=== PATIENT | female | born 1975 | race Caucasian/White ===

== ENCOUNTER → 2021-01-01 | Day surgery (SDC) | payer OTHER ==
[~2021-01-01] MED LIST: ROXICODONE5 M2 PO
--- NOTE | 2021-01-04 15:01 | OP ---
[facility] [address] [place] [address] OPERATIVE REPORT Name: MARIO FLOYD Room: [facility]#: [id number] Admission: 01/01/21 Attend Phys: Felisa Craven Discharge: Date of : 73 Report #: [id number] THIS REPORT FOR: cc: Herbert Bueno MD, Tuongvan T. MD ~ Casper Townsend DO DATE OF SERVICE: 01/01/2021 SURGEON: Dr. Casper Townsend. FACTORY MACHINE COMPUTER OPERATOR: None. PREOPERATIVE DIAGNOSIS: Cholecystitis, biliary colic. POSTOPERATIVE DIAGNOSIS: Cholecystitis, biliary colic. PROCEDURE PERFORMED: Laparoscopic cholecystectomy. INDICATION: The patient is a 45-year-old female who was met in consultation in the hospital after an episode of biliary colic. She was subsequently discharged home and followed up for laparoscopic cholecystectomy. We discussed the risks, benefits and alternatives to surgery. Risks of bleeding, infection, damage to nearby structures including the bowel and biliary tree were described. The patient voiced complete understanding and elected to proceed with surgery. DESCRIPTION OF PROCEDURE: The patient was taken to the operating theater and placed in the supine position. Bilateral SCDs were placed and preoperative antibiotics were given. General anesthesia was induced without complication. A timeout was performed and all were in agreement. We began with an infraumbilical curvilinear incision using 11 blade scalpel. Dissection was carried down to the midline fascia using S retractors and electrocautery. Once the midline fascia was appreciated, it was scored with electrocautery and elevated into the surgical field using Emiliana clamps. The abdomen was then entered bluntly using a hemostat. 0 Vicryl stay sutures were placed on either edge of the fascia and a Meagan trocar was introduced. The abdomen was insufflated to 15 mmHg. The patient was then placed in the head up, left side down position. The camera was introduced. There was no injury to intra-abdominal contents upon abdominal entry. A 5 mm trocar was placed in the subxiphoid position under direct visualization, two more 5 mm trocars were placed in the right upper quadrant under direct visualization. Using the healthcare administrative assistant port, the gallbladder fundus was grasped and elevated towards the anterior abdominal wall. There were some omental adhesions to the gallbladder. These were gently and bluntly swept down off of the gallbladder. Mirela's pouch was then taken [place] [address] OPERATIVE REPORT Name: MARIO FLOYD Room: [facility]#: [id number] Admission: 01/01/21 Attend Phys: Felisa Craven Discharge: Date of : 73 Report #: [id number] lateral peritoneum of the gallbladder was scored with electrocautery and carried towards the liver. The peritoneal incision was then carried over Mirela's pouch and Mirela's pouch was then taken inferolaterally and the peritoneum was incised along the medial aspect of the gallbladder. The peritoneum was then bluntly pushed down on the lateral and medial side exposing the cystic duct and cystic artery. The cystic duct and cystic artery were then skeletonized using a [place] dissector and hook electrocautery. All fibrofatty tissue was cleared from the hepatocystic triangle. At this point, we had a critical view of safety with two structures and the gallbladder and the cystic artery. The cystic artery was clipped twice proximally and once distally and transected with Endo Cedric. The cystic duct was too large to be clipped with a 5 mm clip perforator operator oil well, so the subxiphoid port was changed to a 12 mm port under direct visualization. A 10 mm clips were then used to clip the cystic duct 3 times proximally and once distally and then transected using EndoShears. Then, Mirela's pouch was taken towards the anterior abdominal wall and the gallbladder was dissected free from the gallbladder fossa using electrocautery. Once this had been completed, it was placed into an EndoCatch bag and placed aside. Small amount of irrigation was used in the right upper quadrant. The fluid ran clear and was suctioned dry. Hemostasis was obtained using electrocautery. The clips were visualized again and there was no bile or blood leakage. Next, the patient was placed in the neutral position. The 5 mm trocars were removed under direct visualization, a PMI closure device and 0 Vicryl was used to close the subxiphoid port site under direct visualization. Next, the Meagan trocar was removed and the EndoCatch bag and gallbladder removed from the midline incision. Abdomen was completely desufflated. The midline umbilical incision fascia was closed using 0 Vicryl in [id number] fashion. The subcutaneous tissue was closed using a 3-0 Vicryl in an interrupted inverted fashion. All skin incisions were closed using a 4-0 Monocryl in an interrupted inverted fashion. All skin wounds were dressed with Dermabond. This concluded the procedure and counts were correct x 2. COMPLICATIONS: None. FINDINGS: Omental adhesions to the gallbladder, cholelithiasis. ESTIMATED BLOOD LOSS: 10 mL. ANESTHESIA: General endotracheal anesthesia. DRAINS: None. SPECIMENS: [place] [address] OPERATIVE REPORT Name: MARIO FLOYD Room: [facility]#: [id number] Admission: 01/01/21 Attend Phys: Felisa Craven Discharge: Date of : 73 Report #: [id number] DISPOSITION: The patient was extubated successfully and taken to the PACU in stable condition. <ELECTRONICALLY SIGNED> By: Casper Townsend DO 01/04/21 1501 [id number] [id number] Townsend DO /nt
--- NOTE | 2021-01-05 18:06 | PATH ---
[address] [address] PATHOLOGY RPT PROCEDURE Name: MORE FLOYD Room: [facility].#: [id number] Admission: 01/01/21 Date of : 73 Discharge: Report #: [id number] Path Case #: [id number] [facility] Accession Number: [id number] . 01 Material submitted: . gallbladder - GALLBLADDER WITH CONTENTS . 01 Clinical history: . CHOLELITHIASIS . 02 Diagnosis: Gallbladder with contents: - Chronic cholecystitis with cholesterolosis including cholesterol polyps and cholelithiasis. (SABI:eneida; 01/05/2021) MBR 01/05/2021 1622 Local . 02 Electronically signed: . Dean Layton MD, Pathologist NPI- [id number] . 01 Gross description: . The specimen is received in formalin labeled "More Floyd, gallbladder with contents" and consists of an intact green-shah gallbladder measuring 8.5 x 1.9 x 1.8 cm. The margin is inked black. Opening reveals a lumen filled with tenacious green bile and a single mulberry green calculus measuring 0.7 x 0.6 cm. The mucosa is green and velvety with scattered yellow clusters and an average wall thickness of 0.2 cm. No masses are identified. [employer] sections are submitted in A1. (SDY; 01/04/2021) SYU/SYU 01/04/2021 1612 Local . 02 Pathologist provided ICD-10: K80.10, K82.4, K82.8 . 02 CPT . 204197 Specimen Comment: A courtesy copy of this report has been sent to [phone] Specimen Comment: [id number] Specimen Comment: Report sent to / DR ROBLERO Performed at: [address], [place] [id number] MD Ryan Vickers MD Phone: [phone] Performed at: [address] [place] [address] PATHOLOGY RPT PROCEDURE Name: MORE FLOYD Room: [facility].#: [id number] Admission: 01/01/21 Date of : 73 Discharge: Report #: [id number] Path Case #: [id number] [address] LUIS ALBERTO Zaragoza [id number] MD Dean Layton MD Phone: [phone]
== END | disposition home or self-care (01) ==
LOC: M.SUR 08:25
PROVIDERS: ATTEND Surgery
DX: K80.10 Calculus of gallbladder with chronic cholecystitis without obstruction (principal); R10.11 Right upper quadrant pain; Z98.890 Other specified postprocedural states; Z79.899 Other long term (current) drug therapy; Z20.822 Contact with and (suspected) exposure to COVID-19; Z90.710 Acquired absence of both cervix and uterus